=== PATIENT | female | born 2005 | race Two or more races ===

== ENCOUNTER → 2025-06-21 | Outpatient (CLI) | payer BC ==
[2025-06-21 09:26] LABS: Hematocrit 38.0 % (36.0-46.0); Hemoglobin 12.7 g/dL (12.2-16.2); Mean Corpuscular Hemoglobin 27.6 pg (28.0-32.0); Mean Corpuscular Volume 82.9 fL (80.0-100.0); Nucleated Red Blood Cells % 0.1 %
[2025-06-21 09:28] LABS: Urine Protein, UAD Negative (Negative)
[2025-06-21 09:52] LABS: Alanine Aminotransferase 11 U/L (7-40); Albumin 4.7 g/dL (3.2-4.8); Alkaline Phosphatase 47 U/L (46-116); Anion Gap 10 (5-15); BUN/Creatinine Ratio 8.3 (10.0-20.0); Calcium 9.8 mg/dL (8.7-10.4); Carbon Dioxide 24 mmol/L (20-31); Chloride 105 mmol/L (98-107); Cholesterol 151 mg/dL (< 200); Glucose 82 mg/dL (74-106); Potassium 4.2 mmol/L (3.5-5.1); Sodium 139 mmol/L (136-145); Triglycerides 78 mg/dL (< 150)
[2025-06-21 09:54] LABS: Bilirubin, Total 1.5 mg/dL (0.2-1.0); Blood Urea Nitrogen 7 mg/dL (9-23); HDL Cholesterol 71 mg/dL (40-59); Total Protein 8.2 g/dL (5.7-8.2)
== END | disposition home or self-care (01) ==
LOC: LAB 09:06
PROVIDERS: ATTEND Student in an Organized Health Care Education/Training Program
DX: E55.9 Vitamin D deficiency, unspecified (principal); R73.9 Hyperglycemia, unspecified; R03.0 Elevated blood-pressure reading, without diagnosis of hypertension; Z00.00 Encounter for general adult medical examination without abnormal findings
CPT/HCPCS: 36415; 80053; 80061; 81001; 82306; 83036; 84443; 85025